=== PATIENT | female | born 1975 | race Two or more races ===

== ENCOUNTER 2020-04-08 14:37 | Emergency (ER) | payer OTHER ==
[~2020-04-08] VITALS: Ht 170.2 cm; Wt 87.1 kg
[2020-04-08] MEDS ORDERED: [UNRECOGNIZED DRUG - OTHER] (14:54)
== END 2020-04-08 18:49 | disposition home or self-care (01) ==
LOC: ER 14:37 → EDSEX 16:04 → ER 18:49
DX: M54.2 Cervicalgia (principal); R51 Headache; F41.8 Other specified anxiety disorders; Z03.818 Encounter for observation for suspected exposure to other biological agents ruled out

== ENCOUNTER 2020-04-23 07:51 | Emergency (ER) | payer OTHER ==
[~2020-04-23] VITALS: Ht 170.2 cm; Wt 86.2 kg
[~2020-04-23 07:51] MED LIST: [UNRECOGNIZED DRUG - OTHER]
[2020-04-23] MEDS ORDERED: HYDROXYZINE PAM25 MG PO (08:22)
== END 2020-04-23 13:59 | disposition home or self-care (01) ==
LOC: ER 07:51 → EDSEX 07:52 → ER 07:52
DX: B20 Human immunodeficiency virus [HIV] disease (principal); R53.1 Weakness; R20.0 Anesthesia of skin
CPT/HCPCS: 70460; 93005; Q9965

== ENCOUNTER 2020-05-02 07:33 | Outpatient (CLI) | payer OTHER ==
[~2020-05-02 07:33] MED LIST changes: +HYDROXYZINE PAM25 MG PO
== END 2020-05-02 08:14 | disposition home or self-care (01) ==
LOC: MRI 07:33
PROVIDERS: ATTEND Internal Medicine Cardiovascular Disease
DX: R42 Dizziness and giddiness (principal)
CPT/HCPCS: 70552

== ENCOUNTER 2020-05-02 09:05 | Outpatient (CLI) | payer OTHER | END 2020-05-02 09:37 | disposition home or self-care (01) | LOC: LAB 09:05 | PROVIDERS: ATTEND Internal Medicine Cardiovascular Disease | DX: E78.1 Pure hyperglyceridemia (principal); I10 Essential (primary) hypertension; E78.00 Pure hypercholesterolemia, unspecified; N39.0 Urinary tract infection, site not specified; D64.89 Other specified anemias; N41.8 Other inflammatory diseases of prostate; E03.8 Other specified hypothyroidism; E11.9 Type 2 diabetes mellitus without complications; Z11.4 Encounter for screening for human immunodeficiency virus [HIV]; Z41.1 Encounter for cosmetic surgery ==

== ENCOUNTER 2021-01-01 23:00 | Emergency (ER) | payer OTHER ==
[~2021-01-01] VITALS: Ht 172.7 cm; Wt 81.6 kg
== END 2021-01-02 05:01 | disposition home or self-care (01) ==
LOC: ER 23:00
DX: R07.89 Other chest pain (principal)

== ENCOUNTER 2021-01-15 21:14 | Emergency (ER) | payer OTHER ==
[~2021-01-15] VITALS: Ht 170.2 cm; Wt 81.6 kg
== END 2021-01-16 04:57 | disposition home or self-care (01) ==
LOC: ER 21:14
DX: R07.89 Other chest pain (principal); R09.81 Nasal congestion

== ENCOUNTER 2021-03-24 12:08 | Emergency (ER) | payer OTHER ==
[~2021-03-24] VITALS: Ht 170.2 cm; Wt 83.0 kg
== END 2021-03-24 14:44 | disposition home or self-care (01) ==
LOC: ER 12:08
DX: H60.8X2 Other otitis externa, left ear (principal)

== ENCOUNTER → 2021-07-01 | Emergency (ER) | payer OTHER ==
[~2021-07-01] VITALS: Ht 170.2 cm; Wt 83.9 kg
[~2021-07-01] MED LIST changes: +DUI500 PO; +KETO10TA2 PO
== END | disposition home or self-care (01) ==
LOC: ER 10:32
DX: H66.91 Otitis media, unspecified, right ear (principal)

== ENCOUNTER → 2022-04-17 | Emergency (ER) | payer OTHER ==
[~2022-04-17] VITALS: Ht 172.7 cm; Wt 83.9 kg
== END | disposition left against medical advice (07) ==
LOC: ER 22:57
DX: Z53.21 Procedure and treatment not carried out due to patient leaving prior to being seen by health care provider (principal)

== ENCOUNTER 2024-10-28 16:28 | Emergency (ER) | payer OTHER ==
[~2024-10-28] VITALS: Ht 167.6 cm; Wt 79.4 kg
[2024-10-28 16:44] VITALS: BP 121/78; O2SAT 99
[2024-10-28] MEDS ORDERED: CEFTRIAXONE SODIUM 1,000 MG VIAL IM STA (19:12)
[2024-10-28] MEDS ORDERED: ZITHROMAX500 MG PO (19:35)
[2024-10-28] MEDS ORDERED: MONODOX100 MG PO (19:35)
[2024-10-28] MEDS ORDERED: CEFTRIAXONE SODIUM 1,000 MG VIAL ONE (19:49)
== END 2024-10-28 19:57 | disposition home or self-care (01) ==
LOC: ER 16:30
DX: N34.2 Other urethritis (principal); R05.9 Cough, unspecified